=== PATIENT | female | born 1960 | race Caucasian/White ===

== ENCOUNTER → 2018-06-26 | Outpatient (CLI) | payer BC ==
[~2018-06-26] MED LIST: DIPH25CA5 PO; FEXO1TAB46 PO; NIFE10CA PO; ONDA4TAB7 SL; SIMV40TA4 PO
--- NOTE | 2018-06-26 16:43 | DIAGNOSTIC IMAGING REPORT ---
R VENOUS DOPP LOWER EXT UNILAT CLINICAL HISTORY: RIGHT LEG PAIN, R/O DVT pain. Edema. TECHNIQUE: Venous Doppler COMPARISON STUDY: None FINDINGS: Normal venous Doppler. Medially anterior to the knee is a 1 x 1.5 cm fluid pocket in a hematoma. IMPRESSION: 1. Normal venous Doppler. 2. Small hematoma versus seroma anterior to the knee The above report was generated using voice recognition software. It may contain grammatical, syntax or spelling errors. Electronically signed by: Abner Ortega M.D. 06/26/2018 4:42 PM Dictated Date/Time: 06/26/2018 4:41 PM
== END | disposition home or self-care (01) ==
LOC: C.ULTR 16:05
PROVIDERS: ATTEND Podiatrist Foot & Ankle Surgery
DX: I82.491 Acute embolism and thrombosis of other specified deep vein of right lower extremity (principal); M77.8 Other enthesopathies, not elsewhere classified; L03.115 Cellulitis of right lower limb